=== PATIENT | female | born 1985 | race Caucasian/White ===

== ENCOUNTER 2018-08-27 10:10 | Emergency (ER) | payer BC, SELFPAY ==
[2018-08-27 10:15] VITALS: BP 128/77; PULSE 68; RESP 12; TEMP 36.4
--- NOTE | 2018-08-27 10:22 | ED.GENADUL_ITS ---
Discharge Plan Disposition Patient Disposition: HOME Condition: Stable Discharge Details Chief Complaint: Orthopedic Clinical Impression: Contusion of left foot Primary Care Provider: Unknown,Unknown ED Provider: La Fowler Home Meds and New Rx's Prescriptions: No Action No Known Home Meds RF: 0 Discharge Instructions Instructions: Foot Contusion (ED) Additional Instructions: Rest, ice and elevate left foot as much as possible. Alternate Tylenol and Motrin as needed and directed for pain. Follow-up with the primary care doctor in 1 week for reevaluation as needed. Return to the emergency department if you develop any worsening or new concerning symptoms. Discharge Data Discharge Physician: La Fowler Medical Decision Making 33-year-old female presents with left plantar foot/mid arch pain as well as heel pain with ambulation that occurred after jumping into a three-foot pool yesterday and landing on her left heel. Denies any ankle pain, proximal leg or knee pain. Denies any other injuries. There is ecchymosis and tenderness to her midfoot on plantar aspect with an arch of foot. No tenderness palpation of the knee, proximal leg or ankle. No defo rmities noted. Neurovascularly intact. Patient denies any chance of and had her period 2 weeks ago and is on an IUD. She declines test. Dose of ibuprofen given. Will send for left foot x-ray. Left foot x-ray negative. Patient requests crutches for home. Will place an Evan wrap. She is instructed on the importance of rest, ice, elevate, alternating Tylenol and Motrin. She is instructed to follow-up with her primary care doctor if she has any worsening of symptoms and instructed to return to the ER with any concerns. Imaging Data Radiologic Study: Radiologist's impression: XR Left Foot Complete EXAM DATE/TIME: 08/27/2018 10:25 AM CLINICAL HISTORY: 33 years old, female; Foot; Patient HX: Left arc/heel pain, R/O FX TECHNIQUE: Imaging protocol: XR Left foot. Views: 3 or more views. COMPARISON: No relevant prior studies available. FINDINGS: Bones/joints: Moderate great toe bunion deformity with metatarsus varus and hallux valgus. Soft tissues: Normal. IMPRESSION: No acute findings. HPI General Mode of arrival: wheelchair . Date/Time Provider Initiated Documentation: 08/27/18 10:21 . Limitations to Documentation: no limitations . Information obtained by: patient . HPI Narrative: Patient is a 33-year-old female who presents to the ED with complaint of left foot injury after jumped into a three-foot pool onto her left heel yesterday. Patient is complaining of pain within the arch of her midfoot as well as heel pain with ambulation. Denies any ankle pain or injury, proximal leg or knee pain. She has not taken anything for pain today. She denies any other injuries. Related Data Home Medications Medication Instructions Recorded Confirmed Unknown [No Known Home Meds] 08/27/18 08/27/18 Allergies Allergy/AdvReac Type Severity Reaction Status Date / Time Sulfa (Sulfonamide Allergy Unverified 08/27/18 10:17 Antibiotics) General Stated Complaint: Orthopedic MIR: 4 Review of Systems Review of Systems All systems reviewed & are unremarkable except as noted in HPI and below PFSH Medical History No significant past medical history (Acute) Surgical History No significant past surgical history (Acute) Social History Smoking/Tobacco Use Status: Never Alcohol Intake: current Alcohol Intake frequency: a few times a month Drug use: Never Substance use type: does not use Do you feel safe at home: Yes Do you feel safe in your relationship?: Yes Exam Const General: cooperative, healthy appearing and no acute distress HENMT Head: normal to inspection Mouth: oral mucosae normal Eyes General: appearance normal, both eyes and all related structures Neck Neck: normal visual inspection Resp Effort & Inspection: normal respiratory effort and able to speak in complete sentences Cardio Rate: regular rate Skin General skin exam: no rashes or lesions noted Neuro General: alert, awake and oriented x3 Motor: muscle tone normal throughout Extrem General: normal to inspection and full ROM Ankle/foot/toe images: 1. Faint ecchymoses noted to mid arch. No deformity. No open wounds. Other: Left DP/PT pulses intact No tenderness to palpation of left medial or lateral malleolus. No tenderness palpation of left proximal leg or knee. Toes normal to inspection and motor/sensory grossly intact. No deformities noted. Psych Appearance: grossly normal Affect: normal affect Course Vital Signs Temperature 97.5 F L 08/27/18 10:15 Pulse 68 08/27/18 10:15 Respiratory Rate 12 08/27/18 10:15 Blood Pressure 128/77 08/27/18 10:15 Temperature 97.5 F L 08/27/18 10:15 Temperature Source Temporal Artery Scan 08/27/18 10:15 Pulse 68 08/27/18 10:15 Respiratory Rate 12 08/27/18 10:15 Respiratory Effort Non-Labored 08/27/18 10:17 Blood Pressure 128/77 08/27/18 10:15 Blood Pressure Position Sitting 08/27/18 10:15 Oxygen Delivery Method Room Air 08/27/18 10:15 Oxygen Flow Rate 0 08/27/18 10:15 Pain Level 1 08/27/18 10:15
[2018-08-27] MEDS: Ibuprofen 600 MG TAB PO (10:29)
--- NOTE | 2018-08-27 10:47 | DI.RAD_ITS ---
SYMPTOM/DIAGNOSIS: LT ARCH AND HEEL PAIN, ? FX LEFT FOOT: Three views were obtained. Note is made of a moderate hallux valgus deformity. There is no evidence of acute fracture.
--- NOTE | 2018-08-27 11:06 | DI.VRAD_ITS ---
EXAM: XR Left Foot Complete EXAM DATE/TIME: 08/27/2018 10:25 AM CLINICAL HISTORY: 33 years old, female; Foot; Patient HX: Left arc/heel pain, R/O FX TECHNIQUE: Imaging protocol: XR Left foot. Views: 3 or more views. COMPARISON: No relevant prior studies available. FINDINGS: Bones/joints: Moderate great toe bunion deformity with metatarsus varus and hallux valgus. Soft tissues: Normal. IMPRESSION: No acute findings. Dictated and Authenticated by: Maverick Jorge MD. Ordering:TERRENCE Tovar MD
== END 2018-08-27 11:36 | disposition home or self-care (01) ==
PROVIDERS: Emergency Provider Physician Assistant
DX: S90.32XA Contusion of left foot, initial encounter (principal); W16.022A Fall into swimming pool striking bottom causing other injury, initial encounter
CPT/HCPCS: 99283; 73630; 99282; E0114